=== PATIENT | male | born 1970 | race Caucasian/White ===

== ENCOUNTER 2017-07-07 09:01 | Day surgery (SDC) | payer BC ==
[~2017-07-07 09:01] MED LIST: Buffered Lidocaine 0.9% SYRIN* 5 ML/SYR SYRINGE INTRADERM ONE; Dexamethasone IV* 4 MG/ML 1 ML (4 MG) IV SLOW PU ONE; Famotidine IV* 10 MG/ML 2 ML (20 mg) IV ONE
[2017-07-07] MEDS ORDERED: Dexamethasone IV* 4 MG/ML 1 ML (4 MG) ONE (09:06)
[2017-07-07] MEDS ORDERED: Famotidine IV* 10 MG/ML 2 ML (20 mg) ONE (09:06)
[2017-07-07] MEDS ORDERED: ceFAZolin 2 GM PREMIX (*) 2 GM/50 ML BAG IVPB ONE (09:06)
[2017-07-07] MEDS ORDERED: fentaNYL* 50 MCG/ML 2 ML VIAL (100 MCG VIAL) ONE ×3 (10:20→13:43)
[2017-07-07] MEDS ORDERED: Midazolam* 1 MG/ML 5 ML VIAL (5 MG) ONE (10:20)
[2017-07-07] MEDS ORDERED: Ondansetron INJ* 2 MG/ML VIAL ONE (10:21)
[2017-07-07] MEDS ORDERED: Ketorolac INJ* 30 MG/ML 1 ML VIAL ONE (10:21)
[2017-07-07] MEDS ORDERED: ROPIVACAINE 5 MG/ML 30 ML BTL (0.5%) ONE (10:21)
[2017-07-07] MEDS ORDERED: Propofol* 10 MG/ML 20 ML BTL IV PUSH ONE (10:21)
[2017-07-07] MEDS ORDERED: EPINEPHrine AMP 1 MG/ML ONE (10:52)
[2017-07-07] MEDS ORDERED: Bupivacaine 0.5% SDV PF* 30 ML VIAL ONE (10:52)
[2017-07-07] MEDS ORDERED: HYDROmorphone INJ* 1 MG/ML CARPUJECT SYRINGE IV PRN (12:02)
[2017-07-07] MEDS ORDERED: DiMENhydriNATE IV* 50 MG/ML VIAL IV PUSH PRN (12:02)
[2017-07-07] MEDS ORDERED: oxyCODONE/Acetamin 5/325 MG* TAB PO PRN (12:02)
[2017-07-07] MEDS ORDERED: fentaNYL* 50 MCG/ML 2 ML VIAL (100 MCG VIAL) IV PRN (12:02)
[2017-07-07] MEDS ORDERED: Ondansetron INJ* 2 MG/ML VIAL IV PRN (12:02)
[2017-07-07] MEDS ORDERED: oxyCODONE/Acetamin 5/325 MG* TAB ONE (15:00)
[2017-07-07 15:40] VITALS: BP 98/76
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
== END 2017-07-07 15:41 | disposition home or self-care (01) ==
LOC: OR 09:01
PROVIDERS: ATTEND Orthopaedic Surgery
DX: M75.41 Impingement syndrome of right shoulder (principal); M75.21 Bicipital tendinitis, right shoulder; M19.011 Primary osteoarthritis, right shoulder; Z87.891 Personal history of nicotine dependence; K21.9 Gastro-esophageal reflux disease without esophagitis
CPT/HCPCS: A9270-GY; C1776; J0171; J0690; J1100; J1885; J2250; J2405; J2704; J2795; J3010

== ENCOUNTER 2021-07-30 18:27 | Observation (INO) ==
[2021-07-30] MEDS ORDERED: NS 0.9% 1000 ml BAG 1,000 ML IV ONE (19:18)
[2021-07-30 20:20] LABS: ABS Eosinophils 0.1 10^3/ul (0-0.6); ABS Lymphocytes 1.1 10^3/ul (1.0-4.8); ABS Monocytes 0.7 10^3/ul (0-0.8); Eosinophil % 0.9 %; Hematocrit 47 % (42-52); Hemoglobin 16.3 g/dL (14.0-18.0); Lymphocyte % 16.6 %; Mean Corpuscular HGB Conc 35 g/dL (31-36); Mean Corpuscular Hemoglobin 32 pg (27-31); Mean Corpuscular Volume 91 fL (80-94); Mean Platelet Volume 8.8 fL (7.4-10.4); Platelet Count 185 10^3/uL (150-450); Red Blood Count 5.19 10^6 /uL (4.18-5.48); Red Cell Distribution Width 13 % (10-15); White Blood Count 6.9 10^3/uL (3.5-10.8)
[2021-07-30 20:46] LABS: Albumin 3.6 g/dL (3.2-5.2); C Reactive Protein 111.13 mg/L (<8.01); Globulin 3.5 g/dL (2-4); Potassium 3.6 mmol/L (3.5-5.0); Total Bilirubin 0.7 mg/dL (0.2-1.0); Total Protein 7.1 g/dL (6.4-8.9); Troponin I 0.01 ng/mL (<0.03); eGFR CKD-EPI 87.9 (>60)
[2021-07-30] MEDS ORDERED: Iohexol 350 (CONTRAST) 500 ML MDV IV ONE (22:41)
[2021-07-30] MEDS ORDERED: Albuterol HFA INHALER 8 gm MDI INH ONE (23:20)
[2021-07-31] MEDS ORDERED: Remdesivir 100 mg Vial 200 MG in NS 0.9% 250 ml 210 ML IV ONE (00:59)
[2021-07-31] MEDS ORDERED: NS 0.9% 250 ml 250 ML ONE (01:18)
[2021-07-31 01:28] LABS: INR 1.24 (0.86-1.15)
[2021-07-31 03:22] LABS: Ferritin 1003.3 ng/mL (24-336)
[2021-07-31] MEDS ORDERED: Enoxaparin 40 MG/0.4 ML SYR SUBCUT SCH (06:00)
[2021-07-31 15:13] LABS: Urine Appearance Clear; Urine Bilirubin Negative (Negative); Urine Blood 1+ (Negative); Urine Color Yellow; Urine Glucose 3+(>=500 mg/dL) (Negative); Urine Ketones Negative (Negative); Urine Nitrite Negative (Negative); Urine Protein Negative (Negative); Urine Specific Gravity 1.028 (1.002-1.030); Urine Urobilinogen Negative (Negative)
[2021-07-31 15:15] LABS: Urine Bacteria Absent (Absent); Urine Red Blood Cell 2+(6-10/hpf) (Absent); Urine White Blood Cell Trace(0-5/hpf) (Absent)
[2021-07-31 16:56] VITALS: BP 110/76
[2021-07-31] MEDS ORDERED: Remdesivir 100 mg Vial 100 MG in NS 0.9% 250 ml 230 ML IV SCH (21:00)
== END 2021-07-31 16:56 | disposition home or self-care (01) ==
LOC: ED 18:27 → INTOOBSV 07-31 02:10 → EDHOLD 07-31 02:10 → MED 07-31 16:07
PROVIDERS: ADMIT Internal Medicine; ATTEND Internal Medicine